=== PATIENT | male | born 1995 | race Caucasian/White ===

== ENCOUNTER 2017-06-03 13:17 | Emergency (ER) | payer SELFPAY ==
[2017-06-03 13:46] VITALS: BP 138/74
--- NOTE | 2017-06-03 13:52 | UC ---
Back Pain HPI - HPI Summary HPI Summary: Initial pain started in right lower back in january. Doing a lift. Hurt it this morning after "tweaking it last week". Worse with getting up from sitting and trying to bend over. Feels some weakness with ? numbness in the lower back to the glut. - History of Current Complaint Stated Complaint: LOW BACK PAIN*4 MONTHS Hx Obtained From: Patient Onset/Duration: Sudden Onset, Lasting Weeks - 1, Worse Since - this morning. Back Pain: Is Discrete @ - right lower back Character: Dull, Aching Aggravating Factor(s): Movement, Lifting, Bending Associated Signs And Symptoms: Positive: Weakness. Negative: Bladder Incontinence, Bowel Incontinence, Pain with Weight Bearing - Allergies/Home Medications Allergies/Adverse Reactions: Allergies Allergy/AdvReac Type Severity Reaction Status Date / Time No Known Allergies Allergy Verified 06/03/17 13:39 PMH/Surg Hx/FS Hx/Imm Hx Previously Healthy: Yes - Family History Known Family History: Negative: Cardiac Disease, Hypertension, Diabetes - Social History Occupation: Student Lives: Dormitory/Roommates Review of Systems Musculoskeletal: Arthralgia - right low back pain Is Patient Immunocompromised?: No All Other Systems Reviewed And Are Negative: Yes Physical Exam Triage Information Reviewed: Yes Appearance: Well-Appearing, Well-Nourished, Pain Distress - moderate, worse with movement Vital Signs Reviewed: Yes Eyes: Positive: Conjunctiva Clear Neck exam: Normal Respiratory Exam: Normal Cardiovascular Exam: Normal Musculoskeletal: Positive: Strength Limited @ - lumbar spine with pain Neurological: Positive: Other: - DTR 2+ knee/ankle. Pinprick hyperaesthesia right L2 dermatome. Psychological Exam: Normal Skin Exam: Normal Back Pain Course/Dx - Differential Dx/Diagnosis Differential Diagnosis/HQI/PQRI: Arthritis, Herniated Disc, Strain, Sprain Provider Diagnoses: Lumbar radiculitis Discharge - Sign-Out/Discharge Documenting (check all that apply): Discharge - Discharge Plan Condition: Stable Disposition: HOME Prescriptions: predniSONE TAB* [Deltasone TAB*] 20 mg PO DAILY #18 tab Patient Education Materials: Lumbar Disc Herniation (ED), Prednisone (By mouth) Referrals: No Primary Care Phys,NOPCP [Primary Care Provider] - Additional Instructions: Avoid activities/ positions that make the pain worse. Consider seeing a chiropractor. - Billing Disposition and Condition Condition: STABLE Disposition: HOME
--- NOTE | 2017-06-03 14:38 | RAD ---
Indication: Lumbar radiculopathy. 5 views of the lumbar spine demonstrate vertebral bodies to be normal in height. Disc spaces all well-preserved. No fracture is identified. Pedicles appear intact. IMPRESSION: Unremarkable lumbar spine.
== END 2017-06-03 14:35 | disposition home or self-care (01) ==
LOC: UCCORT 13:17
DX: M54.16 Radiculopathy, lumbar region (principal)
CPT/HCPCS: 72110; 99201; G0463